=== PATIENT | male | born 1960 | race Caucasian/White ===

== ENCOUNTER 2020-10-04 12:39 | Emergency (ER) | payer OTHER ==
[2020-10-04 13:09] VITALS: BMI 29.5
[2020-10-04] MEDS ORDERED: BAMLANIVIMAB 700 MG in SODIUM CHLORIDE 250 ML IVPB ONE (14:45)
[2020-10-04 14:53] LABS: BASO % 0.5 % (0-2.0); HEMATOCRIT 48.1 % (35.4-49); HEMOGLOBIN 16.2 GM/dL (11.7-16.9); LYMPH % 8.9 % (8-40); MCH 30.3 pg (25.7-33.7); MCHC 33.6 g/dl (32.0-35.9); MEAN CELL VOLUME 90.1 fl (80-96); MEAN PLT VOLUME 8.2 fl (7.5-11.1); MONO % 3.5 % (3.8-10.2); NEUT % 87.1 % (42.8-82.8); PLATELET COUNT 163 K/MM3 (134-434); RBC 5.34 M/mm3 (4.00-5.60); RDW 15.8 % (11.9-15.9); WHITE BLOOD COUNT 6.8 K/mm3 (4.0-10.0)
[2020-10-04 15:12] LABS: POTASSIUM 4.2 mmol/L (3.5-5.1)
[2020-10-04 15:14] LABS: BLOOD UREA NITROGEN 21.1 mg/dL (7-18); CALCIUM 9.2 mg/dL (8.5-10.1)
[2020-10-04 15:15] LABS: ALBUMIN 3.7 g/dl (3.4-5.0)
[2020-10-04 15:19] LABS: BILIRUBIN,TOTAL 0.5 mg/dL (0.2-1); TOT PROT 7.6 g/dl (6.4-8.2)
[2020-10-04 18:33] VITALS: BP 140/92; PULSE 87; TEMP 98.5
== END 2020-10-04 18:53 | disposition home or self-care (01) ==
LOC: JCOVINFU 12:39 → JER 12:39 → JCOVINFU 18:53
PROC: 3E033GC Introduction of Other Therapeutic Substance into Peripheral Vein, Percutaneous Approach (ICD-10-PCS; principal; 2020-10-04)
DX: U07.1 COVID-19 (principal)
CPT/HCPCS: 36415; 80053; 85025; 99284-25; M0239; Q0239